=== PATIENT | female | born 1970 | race Caucasian/White ===

== ENCOUNTER 2019-12-13 15:32 | Emergency (ER) | payer OTHER, SELFPAY ==
[2019-12-13 15:33] VITALS: BP 157/65; PULSE 100; RESP 16; TEMP 36.2; TEMP 37.4; O2SAT 96; BMI 28.8
--- NOTE | 2019-12-13 17:07 | ED.VIS.GEN ---
History of Present Illness Chief Complaint: Cough Detail of Chief Complaint: Cough, body aches, fever Informant: Patient Onset: Days - 2 days Context: Gradual Onset Current Severity: Moderate Maximum Severity: Moderate Past Medical History - Allergies and Home Meds Allergies/Adverse Reactions: Allergies No Known Allergies Allergy (Verified 07/16/14 07:21) Primary Care Physician: Care Physician,No Primary [Primary Care Provider] - Prior records reviewed: Yes Lives: Spouse/ Significant Other Smoking Status: Never smoker Review of Systems General: Reports: Fever Eyes: Denies: Visual changes - bilaterally ENT: Reports: - - Congestion Cardiovascular: Denies: Chest pain Respiratory: Reports: Dyspnea, Cough, Sputum Gastrointestinal: Reports: Nausea. Denies: Abdominal pain, Vomiting, Diarrhea Musculoskeletal: Reports: Myalgias Skin: Denies: Rash Neurological: Denies: Headache Allergy: Denies: Uticaria Physical Exam Vital Signs/Narrative: Vital Signs Temp Pulse Resp BP Pulse Ox 12/13/19 15:33 99.4 F H 100 16 157/65 H 96 Inital Vital Signs reviewed: Yes General: Well nourished, Well developed Head: Normocephalic ENT: Moist mucous membranes Neck: Supple Cardiovascular: Regular rate, Regular rhythm Respiratory: No distress, CTA bilaterally Abdomen: Soft, Nontender, Hypoactive bowel sounds Skin: Normal color Neurological: Alert, Oriented x3 Psychological: Normal affect Diagnostic/Tx/Re-eval Impressions Chest X-Ray 12/13/19 17:30 IMPRESSION: Normal x-ray examination of the chest. Electronically Signed: Binh Miller MD at 17:51 EST , Service support , 12/13/19 17:30 Chest PA and Lateral [RAD] Stat 12/13/19 17:40 Mucosa - Nasopharyngeal Influenza Types A,B Direct FA (MARIA ANTONIA) - Final Influenzae A Laboratory Results 12/13/19 12/13/19 17:19 17:19 WBC 4.4 RBC 4.23 Hgb 13.0 Hct 38.5 MCV 91.0 MCH 30.7 MCHC 33.8 RDW Std Deviation 39.9 RDW Coeff of Leslee 12.1 Plt Count 127 L MPV 9.7 Immature Gran % (Auto) 0.200 Neut % (Auto) 76.9 H Lymph % (Auto) 13.4 L [place] % (Auto) 9.5 Eos % (Auto) 0.0 Baso % (Auto) 0.0 Absolute Neuts (auto) 3.4 Absolute Lymphs (auto) 0.59 L Nucleated RBC % 0 Differential Comment SEE COMMENT Platelet Estimate SLT DEC RBC Morphology N CHROM Anisocytosis RARE Sodium 137 Potassium 3.4 L Chloride 105 Carbon Dioxide 24.0 Anion Gap 8 BUN 9 Creatinine 0.76 Estim Creat Clear Calc 74.88 Est GFR (MDRD) Af Amer 104 Est GFR (MDRD) Non-Af 86 BUN/Creatinine Ratio 11.8 Glucose 101 Calcium 8.4 L - Medical Decision Making Patient was given IV fluids and Toradol. On repeat evaluation she is resting comfortably. Test results are discussed with her. We did discuss influenza. She is still in the window for treatment if she wishes to take Tamiflu. At this time she does not believe she wants to take it. I will give her prescription she can fill in the morning if she wishes to take it. ED Disposition - Plan for ED Patient: Disposition: Home or Assisted Living Diagnosis: Influenza A Instructions: INFLUENZA (Adult) Prescriptions: Oseltamivir Phosphate [Tamiflu] 75 mg PO BID #10 capsule Referrals: Annalisa Porter DO [STAFF PHYSICIAN] - As Needed
[2019-12-13] MEDS: 0.9% Normal Saline 1,000 ML 1000 ML IV (17:15)
[2019-12-13] MEDS: Ketorolac 30 MG/ML Syringe IV (17:21)
[2019-12-13 17:24] LABS: Absolute Lymphocyte Count 0.59 X10^3/uL (0.83-4.51); Absolute Neutrophil Count 3.4 X10^3/uL (2.0-7.7); Hematocrit 38.5 % (37-47); Lymphocyte # 0.59 X10^3/ul (4.0); Lymphocyte % 13.4 % (19-41); Mean Corp Hgb Conc 33.8 g/dL (32-36); Mean Corpuscular Hgb 30.7 pg (27.0-32.0); Mean Platelet Vol. 9.7 fl (6.2-12.0); Monocyte# 0.42 X10^3/uL; Monocyte% 9.5 % (0-10); NRBC Flagged by Analyzer 0 % (0-5); Neutrophil # 3.38 X10^3/uL (2.7-7.7); Neutrophil % 76.9 % (47-70); POSITIVE DIFFERENTIAL YES; Platelet Count 127 K/mm3 (150-450); RBC Distribution Width CV 12.1 % (11.6-14.6); RBC Distribution Width SD 39.9 fl (35.1-43.9); Red Blood Count 4.23 M/mm3 (4.2-5.4); White Blood Count 4.4 K/mm3 (4.4-11.0)
[2019-12-13 17:29] LABS: Differential Indicated SCAN CRITERIA MET
--- NOTE | 2019-12-13 17:30 | RAD_ITS ---
STUDY: X-RAY CHEST REASON FOR EXAM: Female, 49 years old. COUGH, SOB TECHNIQUE: AP and lateral views of the chest. COMPARISON: None. FINDINGS: The lungs are clear and expanded. There is no demonstrated pleural abnormality. Normal size heart. Normal mediastinum and jd. Normal visualized pulmonary arteries. Normal visualized aortic arch and descending thoracic aorta. Normal visualized thoracic spine. Normal visualized ribs, clavicles, and shoulders. There is no demonstrated abnormality of the visualized soft tissue structures of the upper abdomen. RAD/Chest PA and Lateral IMPRESSION: Normal x-ray examination of the chest. Electronically Signed: Binh Miller MD at 17:51 EST , Service support ,
[2019-12-13 17:42] VITALS: PULSE 72; RESP 18; O2SAT 97
[2019-12-13 17:42] LABS: Anion Gap 8 (5-15); BUN 9 mg/dL (7-18); BUN/Creat Ratio 11.8 RATIO (10-20); Calcium,Total 8.4 mg/dL (8.5-10.1); Chloride 105 mmol/L (98-107); Creatinine, Serum 0.76 mg/dL (0.55-1.02); EST Glomerular Filtration Rate 86 mL/min (>60); Est Glom Filt Rate - Afr Amer 104 mL/min (>60); Estimated Creatinine Clearance 74.88 ml/min; Glucose 101 mg/dL (74-106); Potassium 3.4 mmol/L (3.5-5.1); Sodium Level 137 mmol/L (136-145)
[2019-12-13 18:28] LABS: Anisocytosis RARE; Platelet Estimate SLT DEC (ADEQ); Red Cell Morphology N CHROM NORMAL (NORM C&C)
--- NOTE | 2019-12-13 18:44 | ED.RN ---
pos flu a called from the lab. dr yates aware
[2019-12-13 19:12] VITALS: RESP 18; O2SAT 97
[2019-12-13 19:32] VITALS: BP 115/72; PULSE 76; RESP 20; O2SAT 97
== END 2019-12-13 19:33 | disposition home or self-care (01) ==
PROVIDERS: Emergency Provider Emergency Medicine
DX: J10.1 Influenza due to other identified influenza virus with other respiratory manifestations (principal)
CPT/HCPCS: 71046; 80048; 85025; 87804; 96361; 96374; 99283; J7030; A4216

== ENCOUNTER → 2021-09-06 08:18 | Outpatient (CLI) | payer OTHER, SELFPAY | PROVIDERS: Referring Provider Physician Assistant; Visit Provider Physician Assistant | DX: U07.1 COVID-19 (principal); Z11.52 Encounter for screening for COVID-19 | CPT/HCPCS: 87635; U0005; U0003 ==

== ENCOUNTER → 2021-09-11 | Outpatient (CLI) | payer OTHER, SELFPAY | END | disposition home or self-care (01) | LOC: LABSPEC 09:28 | PROVIDERS: Referring Provider Physician Assistant Surgical; Visit Provider Physician Assistant Surgical | DX: Z11.52 Encounter for screening for COVID-19 (principal) | CPT/HCPCS: 87635; U0005; U0003 ==